=== PATIENT | male | born 1995 | race Caucasian/White ===

== ENCOUNTER 2018-03-15 13:42 | Emergency (ER) | payer BC, MEDICAID, SELFPAY ==
[2018-03-15 13:49] VITALS: BP 134/55; PULSE 60; RESP 14; TEMP 36.5; O2SAT 97
--- NOTE | 2018-03-15 15:15 | W.ED.GENAD ---
Discharge Plan Discharge Details Chief Complaint: Nk/Back Pain Primary Care Provider: Trudy Bliss ED Provider: Jn Chavez Home Meds and New Rx's Prescriptions: No Action ibuprofen 200 MG tablet 1 tab PO PRN PRNRF: 0 ibuprofen 800 MG tablet 800 mg PO TID PRN PRNQty: 20 RF: 0 Medical Decision Making 22yom with recurrent R sciatica. He will benefit from steroids, mild muscle relaxant, he is neuromotor intact. Discussed home management and followup, will offer PT and 2 days off work. HPI General Mode of arrival: ambulatory. Date/Time Provider Initiated Documentation: 03/15/18 14:30. Limitations to Documentation: no limitations. Information obtained by: patient and family. History of Present Illness described as moderate, Quality is described as aching, and is localized to the back and right. Patient extremity. Patient started experiencing this day(s) and it has been constant. No relieving factors improve symptom(s), Movement worsens symptoms . Patient notes no other symptoms.. HPI Narrative: REcurrent R low back pain radiating to buttock. No numbness or weakness. No incontinence. Similar to previous. Related Data Home Medications Medication Instructions Recorded Confirmed ibuprofen 1 tab PO PRN PRN 12/17/14 03/15/18 ibuprofen 800 mg PO TID PRN PRN #20 tablet 12/17/14 03/15/18 Previous Rx's Medication Instructions Recorded ibuprofen 800 mg PO TID PRN PRN #20 tablet 12/17/14 Allergies Allergy/AdvReac Type Severity Reaction Status Date / Time No Known Allergies Allergy Unverified 03/15/18 13:53 General Stated Complaint: Nk/Back Pain CHAS: 4 Review of Systems Review of Systems 8 systems reviewed and otherwise neg PFSH Social History Smoking/Tobacco Use Status: Current every day Exam Const General: cooperative and healthy appearing Nutritional Appearance: average body habitus HENMT Head: normal to inspection and normocephalic Chest Chest: normal inspection of the chest and normal palpation of entire chest wall Resp Effort & Inspection: normal respiratory effort and able to speak in complete sentences Cardio Rate: regular rate Rhythm: regular rhythm Back/Spine/Pelvis Back: no CVA tenderness, No mass, No erythema and No warmth Cervical Spine: other (R sciatic notch pain on palpation) Neuro General: alert, awake and oriented x3 Cranial Nerves: other (motor 5/5/ bilateral lower extremity. Sensation intact throughout. Reflex 1+ bilateral patella.) Course Vital Signs Temperature 36.5 C 03/15/18 13:49 Pulse 60 03/15/18 13:49 Respiratory Rate 14 03/15/18 13:49 Blood Pressure 134/55 L 03/15/18 13:49 Pulse Oximetry 97 03/15/18 13:49 Temperature 36.5 C 03/15/18 13:49 Temperature Source Temporal Artery Scan 03/15/18 13:49 Pulse 60 03/15/18 13:49 Respiratory Rate 14 03/15/18 13:49 Respiratory Effort Non-Labored 03/15/18 13:50 Blood Pressure 134/55 L 03/15/18 13:49 Blood Pressure Position Sitting 03/15/18 13:49 Pulse Oximetry 97 03/15/18 13:49 Oxygen Delivery Method Room Air 03/15/18 13:49 Oxygen Flow Rate 0 03/15/18 13:49 Pain Level 7 03/15/18 13:52
--- NOTE | 2018-03-15 15:21 | ED.GENADUL_ITS ---
Discharge Plan Discharge Details Chief Complaint: Nk/Back Pain Primary Care Provider: Trudy Bliss ED Provider: Jn Chavez Home Meds and New Rx's Prescriptions: No Action ibuprofen 200 MG tablet 1 tab PO PRN PRNRF: 0 ibuprofen 800 MG tablet 800 mg PO TID PRN PRNQty: 20 RF: 0 Medical Decision Making 22yom with recurrent R sciatica. He will benefit from steroids, mild muscle relaxant, he is neuromotor intact. Discussed home management and followup, will offer PT and 2 days off work. HPI General Mode of arrival: ambulatory . Date/Time Provider Initiated Documentation: 03/15/18 14:30 . Limitations to Documentation: no limitations . Information obtained by: patient and family . History of Present Illness described as moderate, Quality is described as aching, and is localized to the back and right. Patient extremity. Patient started experiencing this day (s) and it has been constant. No relieving factors improve symptom(s), Movement worsens symptoms . Patient notes no other symptoms.. HPI Narrative: REcurrent R low back pain radiating to buttock. No numbness or weakness. No incontinence. Similar to previous. Related Data Home Medications Medication Instructions Recorded Confirmed ibuprofen 1 tab PO PRN PRN 12/17/14 03/15/18 ibuprofen 800 mg PO TID PRN PRN #20 tablet 12/17/14 03/15/18 Previous Rx's Medication Instructions Recorded ibuprofen 800 mg PO TID PRN PRN #20 tablet 12/17/14 Allergies Allergy/AdvReac Type Severity Reaction Status Date / Time No Known Allergies Allergy Unverified 03/15/18 13:53 General Stated Complaint: Nk/Back Pain CHAS: 4 Review of Systems Review of Systems 8 systems reviewed and otherwise neg PFSH Social History Smoking/Tobacco Use Status: Current every day Exam Const General: cooperative and healthy appearing Nutritional Appearance: average body habitus HENMT Head: normal to inspection and normocephalic Chest Chest: normal inspection of the chest and normal palpation of entire chest wall Resp Effort & Inspection: normal respiratory effort and able to speak in complete sentences Cardio Rate: regular rate Rhythm: regular rhythm Back/Spine/Pelvis Back: no CVA tenderness, No mass, No erythema and No warmth Cervical Spine: other (R sciatic notch pain on palpation) Neuro General: alert, awake and oriented x3 Cranial Nerves: other (motor 5/5/ bilateral lower extremity. Sensation intact throughout. Reflex 1+ bilateral patella.) Course Vital Signs Temperature 36.5 C 03/15/18 13:49 Pulse 60 03/15/18 13:49 Respiratory Rate 14 03/15/18 13:49 Blood Pressure 134/55 L 03/15/18 13:49 Pulse Oximetry 97 03/15/18 13:49 Temperature 36.5 C 03/15/18 13:49 Temperature Source Temporal Artery Scan 03/15/18 13:49 Pulse 60 03/15/18 13:49 Respiratory Rate 14 03/15/18 13:49 Respiratory Effort Non-Labored 03/15/18 13:50 Blood Pressure 134/55 L 03/15/18 13:49 Blood Pressure Position Sitting 03/15/18 13:49 Pulse Oximetry 97 03/15/18 13:49 Oxygen Delivery Method Room Air 03/15/18 13:49 Oxygen Flow Rate 0 03/15/18 13:49 Pain Level 7 03/15/18 13:52
== END 2018-03-15 15:33 | disposition home or self-care (01) ==
PROVIDERS: Emergency Provider Emergency Medicine; PCP Family Medicine
DX: M54.5 Low back pain (principal); G89.29 Other chronic pain
CPT/HCPCS: 99283

== ENCOUNTER 2018-03-19 14:03 | Emergency (ER) | payer BC, MEDICAID, SELFPAY ==
[2018-03-19 14:08] VITALS: BP 135/82; PULSE 89; RESP 18; TEMP 36.8; O2SAT 98
--- NOTE | 2018-03-19 14:42 | W.ED.GENAD ---
Discharge Plan Disposition Patient Disposition: HOME Condition: Stable Discharge Details Chief Complaint: Nk/Back Pain Clinical Impression: Acute exacerbation of chronic low back pain, Sciatica Primary Care Provider: Trudy Bliss ED Provider: Anette Wolfe Home Meds and New Rx's Prescriptions: New diazepam [Valium] 5 mg tablet 5 mg PO TID PRN (Reason: muscle spasm) Qty: 9 RF: 0 Continue prednisone 20 mg tablet 40 mg PO DAILY 5 Days Qty: 10 RF: 0 Discontinued cyclobenzaprine 10 mg tablet 10 mg PO TID PRN (Reason: back pain and spasm) Qty: 10 RF: 0 Discharge Instructions Instructions: Sciatica (ED) Additional Instructions: Alternate Tylenol and Motrin as needed and directed for pain. Alternate ice and heat to the affected area several times daily for 20 minutes at a time. Follow-up with your scheduled appointment with your primary care doctor on Thursday. Return to the emergency department with any worsening or new concerning symptoms. Stand Alone Forms: Work Release Discharge Data Discharge Physician: Anette Wolfe Medical Decision Making 22yo M w/ h/o chronic back pain for years who presents w/ persistent R lower back pain with radiation down R leg x 1 week, worse over the past 2 days. Also c/o R leg weakness but states he has had this for years and no acute worsening. No other cauda equina symptoms. No relief with flexeril or steroids given here on ED visit earlier this week. Afebrile. Pt able to ambulate normally around the room. No focal deficits. Neurovascularly intact. As pt does not want to take the flexeril due to fatigue, will give script for valium. Pt drove himself to the ED. Informed patient that Valium can make him sleepy as well but possibly not as much as flexeril. Instructed on the importance of scheduled ibuprofen, ice, heat. We will also sent home with 2 tabs of Tylenol with codeine to help with pain if not relieved with Valium or ibuprofen. Pt has a follow up appointment with his primary care doctor in 3 days. He states he was previously told that he may have an MRI of his lumbar spine due to his chronic back pain and 6th lumbar vertebrae. He was instructed to return here immediately with any acute worsening symptoms or other concerns. Pt requests a work note upon discharge and states he called out of work today and needs a work note for today. HPI General Mode of arrival: ambulatory. Date/Time Provider Initiated Documentation: 03/19/18 14:16. Limitations to Documentation: no limitations. Information obtained by: patient. HPI Narrative: Patient is a 22-year-old male who presents to the ED with a complaint of persistent lower back pain with radiation down the right leg for the past week. Patient was seen here 4 days ago for same and diagnosed with sciatica and given Flexeril and prednisone without relief. States he does not like taking the Flexeril because it makes him sleepy and unable to function at home with his 2 young kids and at work. States he finished the steroids today and they did not help. Denies any relief with ibuprofen but states he has not been taking it regularly. Patient states his pain is in his right lower back with radiation down the back of his leg to his foot. States the pain is worse with movement, sitting, standing and better when laying down. He denies any new injury but states the pain is worse over the past 2 days. States he does have a history of chronic back pain for years and was told this could possibly be due to a 6th vertebrae in my lower back putting pressure on a nerve. Pt states he does occasionally have right leg weakness due to pain. Denies fever, abdominal pain, urinary or fecal incontinence, saddle anesthesia, leg numbness. Past medical history: Chronic back pain Surgical history: None Social history: Smokes tobacoo, Rare ETOH, Denies drugs Meds: Flexeril, Prednisone Allergies: NKDA PCP: [facility] Related Data Home Medications Medication Instructions Recorded Confirmed prednisone 40 mg PO DAILY 5 Days #10 tab 03/15/18 03/19/18 diazepam [Valium] 5 mg PO TID PRN #9 tab 03/19/18 Previous Rx's Medication Instructions Recorded prednisone 40 mg PO DAILY 5 Days #10 tab 03/15/18 diazepam [Valium] 5 mg PO TID PRN #9 tab 03/19/18 Allergies Allergy/AdvReac Type Severity Reaction Status Date / Time No Known Allergies Allergy Unverified 03/19/18 14:11 General Stated Complaint: Nk/Back Pain CHAS: 4 Review of Systems Review of Systems All systems reviewed & are unremarkable except as noted in HPI and below PFSH Social History Smoking/Tobacco Use Status: Current every day Exam Const General: cooperative and healthy appearing Orientation: alert and awake HENMT Head: normal to inspection Ears: hearing grossly normal bilaterally and external ears normal General nose exam: external nose normal Face and sinus: normal facial exam Mouth: oral mucosae normal Eyes General: appearance normal, both eyes and all related structures Eyelids: eyelids normal Neck Neck: normal visual inspection Lymphatic: no lymphadenopathy noted Chest Chest: normal inspection of the chest Resp Effort & Inspection: normal respiratory effort and able to speak in complete sentences Auscultation: clear to auscultation bilaterally Cardio Rate: regular rate Rhythm: regular rhythm GI Inspection: normal to inspection Palpation: soft, not firm, no guarding, no hepatosplenomegaly, no masses and nontender Auscultation: normal bowel sounds Back/Spine/Pelvis Back: no CVA tenderness Thoracic/Lumbar Spine: paraspinal tenderness (Right lumbar region) and No lumbar spinal tenderness Pelvis: buttock tenderness on the right Skin General skin exam: no rashes or lesions noted Neuro General: alert and awake Cognition: normal cognition Speech: speech normal Gait: normal gait Motor: muscle tone normal throughout and strength 5/5 throughout Sensory Exam: no sensory deficits noted DTR's: Rt Patellar: 1+, Lt Patellar: 1+, Rt Ankle: 1+ and Lt Ankle: 1+ Plantar Reflexes: Equivocal: bilateral Extrem General: normal to inspection, full ROM, normal capillary refill, normal gait, no calf tenderness bilaterally, no cyanosis, no edema and other (B/L DP/PT pulses intact ) Psych Appearance: grossly normal Mental Status: mental status grossly normal Speech and Movement: speech and movement normal Affect: normal affect Thought Process: normal Course Vital Signs Temperature 98.2 F 03/19/18 14:08 Pulse 89 03/19/18 14:08 Respiratory Rate 18 03/19/18 14:08 Blood Pressure 135/82 03/19/18 14:08 Pulse Oximetry 98 03/19/18 14:08 Temperature 98.2 F 03/19/18 14:08 Temperature Source Skin 03/19/18 14:08 Pulse 89 03/19/18 14:08 Respiratory Rate 18 03/19/18 14:08 Respiratory Effort 03/19/18 14:13 Blood Pressure 135/82 03/19/18 14:08 Pulse Oximetry 98 03/19/18 14:08 Oxygen Delivery Method Room Air 03/19/18 14:08 Oxygen Flow Rate 0 03/19/18 14:08 Pain Level 10 03/19/18 14:08
== END 2018-03-19 15:20 | disposition home or self-care (01) ==
PROVIDERS: Emergency Provider Physician Assistant; PCP Family Medicine
DX: M54.41 Lumbago with sciatica, right side (principal)
CPT/HCPCS: 99283

== ENCOUNTER 2018-05-14 12:36 | Emergency (ER) | payer SELFPAY ==
[2018-05-14 12:38] VITALS: BP 141/76; PULSE 88; RESP 16; TEMP 36.6; O2SAT 96
--- NOTE | 2018-05-14 12:41 | W.ED.GENAD ---
Discharge Plan Disposition Patient Disposition: HOME Condition: Fair Discharge Details Chief Complaint: Nausea/Vomit/Diar Clinical Impression: Gastroenteritis Primary Care Provider: Trudy Bliss ED Provider: Norah Montano Home Meds and New Rx's Prescriptions: New ondansetron 4 mg tablet,disintegrating 4 mg PO QID PRN (Reason: nausea and vomiting) Qty: 10 RF: 0 Discharge Instructions Instructions: Gastroenteritis (ED) Additional Instructions: Encourage hydration. Zofran as prescribed to help with nausea and vomiting. You may try increasing fiber or bulk forming fiber supplements to help with your chronic loose stools. If you develop fever/chills, increased pain, no blood in your stool your vomit, are unable to stay hydrated or develop other new/worsening symptoms please seek care urgently once again. Otherwise, please follow-up with primary care next week Stand Alone Forms: Work Release Referrals: Trudy Bliss [Primary Care Provider] - Medical Decision Making Patient 22-year-old male, otherwise healthy, presents today with chief complaint of nausea and vomiting times 4 days. Also endorsing diarrhea. States that he is having soft bowel movement 1-2 times daily for the past several weeks. States that he has had some abdominal discomfort associated with bowel movements but is not having any discomfort at this time. No recent fevers. No recent travel. No recent antibiotics. No previous abdominal surgeries. Exam is benign, no peritoneal findings. Abdomen is soft and nontender. Patient appears nontoxic, vital signs are stable. Will obtain laboratory evaluation and hydrate the patient. Will give Zofran to help with current nausea. He does report that there is multiple people sick at work. Laboratory evaluation without significant abnormality. Patient received 4 mg IV Zofran and feels improved. He received 1 L of hydration. The patient is not having frequent watery stool, I do not feel this is infectious. He is unable to give us a sample today. I have asked that he follow-up with primary care in 1 week if symptoms have not improved. I did advise a bulk forming agents to help with his now chronic diarrhea. Will be prescribed Zofran to help with the nausea in the acute setting. We discussed new/worsening symptoms and when to seek care urgently once again. All his questions and concerns were addressed and he is agreement with this plan HPI General Mode of arrival: ambulatory. Date/Time Provider Initiated Documentation: 05/14/18 12:38. Limitations to Documentation: no limitations. Information obtained by: patient. History of Present Illness 22 year old M presents to the emergency department with the chief complaint of nausea, vomiting, diarrhea, described as moderate, and is localized to the abdomen (endorses discomfort in the abdomen particular with bowel movement, no pain at this time). Patient reports no radiation. Patient started experiencing this day(s) (4) and it has been constant. No relieving factors improve symptom(s), No exacerbating factors reported . Patient notes loss of appetite and nausea/vomiting; denies chest pain, cough, diaphoresis, fever/chills, headaches, rash, shortness of breath and syncope. Patient did receive the following treatments prior to arrival, none Related Data Home Medications Medication Instructions Recorded Confirmed ondansetron 4 mg PO QID PRN #10 tab 05/14/18 Previous Rx's Medication Instructions Recorded ondansetron 4 mg PO QID PRN #10 tab 05/14/18 Allergies Allergy/AdvReac Type Severity Reaction Status Date / Time No Known Allergies Allergy Unverified 05/14/18 12:43 General Stated Complaint: Nausea/Vomit/Diar CHAS: 3 Review of Systems Constitutional Reports as per HPI, Denies chills, Denies fatigue, Denies fever(s) and Denies headache(s) ENT Denies headache(s) Cardiovascular Reports as per HPI, Denies chest pain and Denies dyspnea Respiratory Denies dyspnea Gastrointestinal Reports as per HPI, Reports abdominal pain, Reports change in stool character (states he has had soft BM for the past several weeks, states he has 1-2BM per day), Reports nausea and Reports vomiting Genitourinary Denies system reviewed and no additional complaints, except as docu (patient denies any change in urinary habits), Denies dysuria, Denies flank pain, Denies scrotal swelling, Denies testicular pain and Denies urinary frequency Musculoskeletal Reports as per HPI and Reports back pain (endorses chronic back pain, no acute change, no increase in pain with recent illness) Integumentary/Breasts Reports as per HPI and Denies rash Neurologic Denies headache(s) Endocrine Denies fatigue PFSH Social History Smoking/Tobacco Use Status: Current-Occasional Exam Const General: cooperative, healthy appearing, comfortable, no acute distress and well developed Nutritional Appearance: average body habitus and well nourished Orientation: alert and awake HENCA Head: normal to inspection Mouth: moist mucous membranes Resp Effort & Inspection: normal respiratory effort, able to speak in complete sentences and no respiratory distress Auscultation: clear to auscultation bilaterally, no rales, no rhonchi and no wheezes Cardio Rate: regular rate Rhythm: regular rhythm Heart Sounds: S1 normal and S2 normal GI Inspection: normal to inspection, no abdominal wall ecchymosis, no edema, non-distended and no visible herniation Palpation: soft, no hepatosplenomegaly, no aortic enlargement, not firm, no guarding, no hernias, not rigid and nontender Percussion: normal to percussion Auscultation: normal bowel sounds Back/Spine/Pelvis Back: no CVA tenderness Skin General skin exam: no rashes or lesions noted Trauma: no lacerations or abrasions Neuro General: alert and awake Cognition: normal cognition Speech: speech normal Gait: normal gait Psych Appearance: grossly normal and well kempt Mental Status: mental status grossly normal Speech and Movement: speech and movement normal Course Vital Signs Temperature 36.6 C 05/14/18 12:38 Pulse 88 05/14/18 12:38 Respiratory Rate 16 05/14/18 12:38 Blood Pressure 141/76 H 05/14/18 12:38 Pulse Oximetry 96 05/14/18 12:38 Temperature 36.6 C 05/14/18 12:38 Temperature Source Temporal Artery Scan 05/14/18 12:38 Pulse 88 05/14/18 12:38 Respiratory Rate 16 05/14/18 12:38 Blood Pressure 141/76 H 05/14/18 12:38 Blood Pressure Position Sitting 05/14/18 12:38 Pulse Oximetry 96 05/14/18 12:38 Oxygen Delivery Method Room Air 05/14/18 12:38 Oxygen Flow Rate 0 05/14/18 12:38
--- NOTE | 2018-05-14 12:56 | ED.GENADUL_ITS ---
Discharge Plan Disposition Patient Disposition: HOME Condition: Fair Discharge Details Chief Complaint: Nausea/Vomit/Diar Clinical Impression: Gastroenteritis Primary Care Provider: Trudy Bliss ED Provider: Norah Montano Home Meds and New Rx's Prescriptions: New ondansetron 4 mg tablet,disintegrating 4 mg PO QID PRN (Reason: nausea and vomiting) Qty: 10 RF: 0 Discharge Instructions Instructions: Gastroenteritis (ED) Additional Instructions: Encourage hydration. Zofran as prescribed to help with nausea and vomiting. You may try increasing fiber or bulk forming fiber supplements to help with your chronic loose stools. If you develop fever/chills, increased pain, no blood in your stool your vomit, are unable to stay hydrated or develop other new /worsening symptoms please seek care urgently once again. Otherwise, please follow-up with primary care next week Stand Alone Forms: Work Release Referrals: Trudy Bliss [Primary Care Provider] - Medical Decision Making Patient 22-year-old male, otherwise healthy, presents today with chief complaint of nausea and vomiting times 4 days. Also endorsing diarrhea. States that he is having soft bowel movement 1-2 times daily for the past several weeks. States that he has had some abdominal discomfort associated with bowel movements but is not having any discomfort at this time. No recent fevers. No recent travel. No recent antibiotics. No previous abdominal surgeries. Exam is benign, no peritoneal findings. Abdomen is soft and nontender. Patient appears nontoxic, vital signs are stable. Will obtain laboratory evaluation and hydrate the patient. Will give Zofran to help with current nausea. He does report that there is multiple people sick at work. Laboratory evaluation without significant abnormality. Patient received 4 mg IV Zofran and feels improved. He received 1 L of hydration. The patient is not having frequent watery stool, I do not feel this is infectious. He is unable to give us a sample today. I have asked that he follow-up with primary care in 1 week if symptoms have not improved. I did advise a bulk forming agents to help with his now chronic diarrhea. Will be prescribed Zofran to help with the nausea in the acute setting. We discussed new/worsening symptoms and when to seek care urgently once again. All his questions and concerns were addressed and he is agreement with this plan HPI General Mode of arrival: ambulatory . Date/Time Provider Initiated Documentation: 05/14/18 12:38 . Limitations to Documentation: no limitations . Information obtained by: patient . History of Present Illness 22 year old M presents to the emergency department with the chief complaint of nausea, vomiting, diarrhea, described as moderate, and is localized to the abdomen (endorses discomfort in the abdomen particular with bowel movement, no pain at this time). Patient reports no radiation. Patient started experiencing this day(s) (4) and it has been constant. No relieving factors improve symptom(s), No exacerbating factors reported . Patient notes loss of appetite and nausea/vomiting; denies chest pain, cough, diaphoresis, fever/ chills, headaches, rash, shortness of breath and syncope. Patient did receive the following treatments prior to arrival, none Related Data Home Medications Medication Instructions Recorded Confirmed ondansetron 4 mg PO QID PRN #10 tab 05/14/18 Previous Rx's Medication Instructions Recorded ondansetron 4 mg PO QID PRN #10 tab 05/14/18 Allergies Allergy/AdvReac Type Severity Reaction Status Date / Time No Known Allergies Allergy Unverified 05/14/18 12:43 General Stated Complaint: Nausea/Vomit/Diar CHAS: 3 Review of Systems Constitutional Reports as per HPI, Denies chills, Denies fatigue, Denies fever(s) and Denies headache(s) ENT Denies headache(s) Cardiovascular Reports as per HPI, Denies chest pain and Denies dyspnea Respiratory Denies dyspnea Gastrointestinal Reports as per HPI, Reports abdominal pain, Reports change in stool character ( states he has had soft BM for the past several weeks, states he has 1-2BM per day), Reports nausea and Reports vomiting Genitourinary Denies system reviewed and no additional complaints, except as docu (patient denies any change in urinary habits), Denies dysuria, Denies flank pain, Denies scrotal swelling, Denies testicular pain and Denies urinary frequency Musculoskeletal Reports as per HPI and Reports back pain (endorses chronic back pain, no acute change, no increase in pain with recent illness) Integumentary/Breasts Reports as per HPI and Denies rash Neurologic Denies headache(s) Endocrine Denies fatigue PFSH Social History Smoking/Tobacco Use Status: Current-Occasional Exam Const General: cooperative, healthy appearing, comfortable, no acute distress and well developed Nutritional Appearance: average body habitus and well nourished Orientation: alert and awake HENMN Head: normal to inspection Mouth: moist mucous membranes Resp Effort & Inspection: normal respiratory effort, able to speak in complete sentences and no respiratory distress Auscultation: clear to auscultation bilaterally, no rales, no rhonchi and no wheezes Cardio Rate: regular rate Rhythm: regular rhythm Heart Sounds: S1 normal and S2 normal GI Inspection: normal to inspection, no abdominal wall ecchymosis, no edema, non- distended and no visible herniation Palpation: soft, no hepatosplenomegaly, no aortic enlargement, not firm, no guarding, no hernias, not rigid and nontender Percussion: normal to percussion Auscultation: normal bowel sounds Back/Spine/Pelvis Back: no CVA tenderness Skin General skin exam: no rashes or lesions noted Trauma: no lacerations or abrasions Neuro General: alert and awake Cognition: normal cognition Speech: speech normal Gait: normal gait Psych Appearance: grossly normal and well kempt Mental Status: mental status grossly normal Speech and Movement: speech and movement normal Course Vital Signs Temperature 36.6 C 05/14/18 12:38 Pulse 88 05/14/18 12:38 Respiratory Rate 16 05/14/18 12:38 Blood Pressure 141/76 H 05/14/18 12:38 Pulse Oximetry 96 05/14/18 12:38 Temperature 36.6 C 05/14/18 12:38 Temperature Source Temporal Artery Scan 05/14/18 12:38 Pulse 88 05/14/18 12:38 Respiratory Rate 16 05/14/18 12:38 Blood Pressure 141/76 H 05/14/18 12:38 Blood Pressure Position Sitting 05/14/18 12:38 Pulse Oximetry 96 05/14/18 12:38 Oxygen Delivery Method Room Air 05/14/18 12:38 Oxygen Flow Rate 0 05/14/18 12:38
[2018-05-14] MEDS: Normal Saline 1,000 ML 1000 ML IV (12:58)
[2018-05-14] MEDS: Ondansetron 4 MG/2 ML VIAL IVP (13:00)
[2018-05-14 13:02] LABS: Abs Immature Grans 0.01 k/cumm (0.0-0.09); Absolute Basophil Count 0.02 k/cumm (0.0-0.2); Absolute Eosinophil Count 0.07 k/cumm (0.0-0.7); Absolute Lymphocyte Count 2.76 k/cumm (1.2-3.4); Absolute Neutrophil Count 5.17 k/cumm (1.2-6.7); Basophils % 0.2; Eosinophils % 0.8; HCT 44.3 % (40.0-50.0); HGB 15.5 g/dL (13.5-17.5); Immature Grans % 0.1; Lymphocytes % 31.6; Mean Corpuscular Hemoglobin 29.4 pg (27.0-33.0); Mean Corpuscular Volume 84.1 fL (80-95); Mean Platelet Volume 10.2 fL (8.0-11.0); Neutrophils % 59.3; Platelet Count 280 x1000/uL (130-400); RBC 5.27 m/cumm (4.50-6.00); RBC Distribution Width 13.2 % (11.8-14.1); White Blood Cell Count 8.73 k/cumm (4.4-10.8)
[2018-05-14 13:19] LABS: ALT 49 U/L (12-78); AST 30 U/L (15-37); Albumin 4.7 g/dL (3.4-5.0); Alkaline Phosphatase 72 U/L (46-116); Anion Gap 13.6 mmol/L (3-11); BUN 12 mg/dL (7-18); Bilirubin, Total 0.8 mg/dL (0.2-1.0); CO2 26.4 mmol/L (21.0-32.0); CREATININE 1.05 mg/dL (0.70-1.30); Calcium 9.3 mg/dL (8.5-10.1); Chloride 100 mmol/L (98-107); Glucose 94 mg/dL (70-100); Lipase 117 U/L (73-393); Magnesium 1.9 mg/dL (1.8-2.4); Potassium 3.6 mmol/L (3.5-5.1); Sodium 140 mmol/L (136-145); Total Protein 8.5 g/dL (6.4-8.2)
[2018-05-14 13:27] LABS: Troponin I < 0.02 ng/mL (0.00-0.06)
[2018-05-14 13:38] VITALS: BP 107/55; PULSE 66; RESP 16; TEMP 36.6; O2SAT 97
== END 2018-05-14 13:42 | disposition home or self-care (01) ==
PROVIDERS: Emergency Provider Physician Assistant; PCP Family Medicine
DX: K52.9 Noninfective gastroenteritis and colitis, unspecified (principal)
CPT/HCPCS: 36415; 80053; 83690; 96361; 96374; 99284; 83735; 84484; 85025; J2405

== ENCOUNTER 2018-05-24 05:24 | Emergency (ER) | payer SELFPAY ==
[2018-05-24 05:29] VITALS: BP 139/79; PULSE 89; RESP 16; TEMP 36.6; O2SAT 98
--- NOTE | 2018-05-24 05:45 | DI.RAD_ITS ---
SYMPTOM/DIAGNOSIS: TRAUMA, ATTN MID SHAFT ULNA RIGHT FOREARM: Two views. No acute fracture or dislocation is identified. IMPRESSION: No acute abnormality.
--- NOTE | 2018-05-24 05:45 | DI.RAD_ITS ---
SYMPTOM/DIAGNOSIS: TRAUMA, ATTN 3RD/4TH MCP JOINT RIGHT HAND: Two views. No bone or joint abnormality is identified. The soft tissues are unremarkable. IMPRESSION: No acute abnormality.
--- NOTE | 2018-05-24 05:48 | W.ED.GENAD ---
Discharge Plan Disposition Patient Disposition: HOME Condition: Good Discharge Details Chief Complaint: HeadInjury Clinical Impression: Contusion of hand, Contusion of forearm Primary Care Provider: Trudy Bliss ED Provider: Bryan eNal Home Meds and New Rx's Prescriptions: No Action ondansetron 4 mg tablet,disintegrating 4 mg PO QID PRN (Reason: nausea and vomiting) Qty: 10 RF: 0 Discharge Instructions Instructions: Contusion in Adults (ED), RICE Therapy (ED) Additional Instructions: Please take ice, Tylenol, and Motrin as needed for control of the pain and swelling. If you notice any worsening of your symptoms, or any new symptoms such as vomiting, diarrhea, fever, chills, shortness of breath, chest pain, numbness, weakness, or fainting , please return immediately to the emergency department for reevaluation. Please follow up with your primary care provider as soon as possible for reassessment and reevaluation. As always, it was a pleasure participating in your medical care today. Stand Alone Forms: Work Release Referrals: Trudy Bliss [Primary Care Provider] - Medical Decision Making This is a pleasant 22-year-old male who presents for evaluation after a fall. The patient was walking on ice when he slipped and hit the back of his head and his right hand and forearm. He smacked the ice fairly hard with his right upper extremity, however it was complicated by him holding his coffee as well. He has mild to moderate pain over the third and fourth MCP joint on the right dominant hand. As well as mild pain over the midshaft ulna. We will get an x-ray to evaluate for any acute process. He has no pain over the wrist, no pain with flexion or extension of the wrist. Ice has been placed, we will give Tylenol and Motrin. X-ray results have returned, there is no evidence of acute process or fracture noted on x-ray per virtual radiology. Patient will be discharged home with close follow-up with his PCP. We discussed red flags which to return the continued importance of ice, Tylenol, and Motrin. I have extensively reviewed the treatment plan and discharge instructions with the patient. I have addressed all patient concerns at this time. The patient was made aware of what symptoms to monitor for that would warrant a return to the emergency department. Discussed the plan with the patient, they demonstrate verbal understanding and agreement with our assessment and plan at this time. XR Right Forearm, 2 Views FINDINGS: Bones/joints: Typical for age. No evidence of acute fracture. Soft tissues: Unremarkable. IMPRESSION: No acute findings. XR Right Hand, 1 or 2 Views FINDINGS: Bones/joints: Typical for age. No evidence of acute fracture. Soft tissues: Unremarkable. IMPRESSION: No acute findings. HPI General Date/Time Provider Initiated Documentation: 05/24/18 05:44. HPI Narrative: This is a 22-year-old male with no significant past medical history who presents for evaluation of a fall. The patient states that he was walking into work, but unfortunately the entrance was issue device and he slipped and hit the back of his head and his right hand. He is right-hand dominant. He had no loss of consciousness and recalls the entire event. He does have a mild headache, however he states that the majority of his pain is in his right knuckles and right forearm. Pain is made worse with palpation. He came here immediately after the event, and is not taking any Tylenol or Motrin or ice. He denies any improvement of his symptoms with any focal action. He denies any radiation of his pain aside for over the third and fourth knuckle in the midshaft of the ulna. He denies any pain at the elbow or shoulder. He denies any associated numbness or tingling. He has no other complaints at this time. No previous surgeries. No IV or illicit drug use. Related Data Home Medications Medication Instructions Recorded Confirmed ondansetron 4 mg PO QID PRN #10 tab 05/14/18 05/24/18 Previous Rx's Medication Instructions Recorded ondansetron 4 mg PO QID PRN #10 tab 05/14/18 Allergies Allergy/AdvReac Type Severity Reaction Status Date / Time No Known Allergies Allergy Unverified 05/24/18 05:38 General Stated Complaint: HeadInjury CHAS: 3 Review of Systems Review of Systems All systems reviewed & are unremarkable except as noted in HPI and below [facility] Social History Smoking/Tobacco Use Status: Current-Occasional Exam Narrative Exam Narrative: 1.Const: Well-nourished, Well-developed, appearing stated age 2.Eyes: PERRL, no conjunctival injection, and symmetrical lids. 3.ENT: Atraumatic external nose and ears. Moist MM. Neck: Symmetric, trachea midline, No thyromegaly. There is no evidence of raccoon eyes, mccabe sign, CSF rhinorrhea, mastoid tenderness, cranial crepitus, hemotympanum, exophthalmos, or hyphema. 4.CVS: +S1/S2, No murmurs or gallops. Peripheral pulses 2+ and equal in all extremities. Brisk capillary refill in all extremities. 5.RESP: Unlabored respiratory effort. Clear to auscultation bilaterally. No wheezes rales or rhonchi 6.GI: Soft, Nontender/Nondistended, No hepatosplenomegaly. No guarding or rebound. 7.MSK: Normocephalic, Extremities w/o deformity. No cyanosis or clubbing, Normal movement of all extremities. No midline cervical spine tenderness. No evidence of hematoma in the scalp. No evidence of trauma on the scalp or head. Normal range of motion of the neck and C-spine. No evidence of trauma. Patient's extremities are all normal gross movements. Right upper extremity demonstrates mild tenderness on palpation of the midshaft ulna. No evidence of deformity or bruising or trauma. Patient also demonstrates mild tenderness over the third and fourth metacarpal phalangeal joint. Normal movement. Symmetrically palpable radial and ulnar pulses. Capillary refill ?2 seconds to all digits. Intact sensation to light touch of the radial, median and ulnar nerves demonstrated by testing in the dorsal web space of the thumb, the distal palmar aspect of the index finger, and the lateral surface of the fifth finger. 2 point discrimination intact to 5mm (up to 6mm can be normal in digits 3-5) of discrimination in the affected digit. Intact motor function of the radial, median and ulnar nerves demonstrated by strength of extension of the isolated distal joint of the index finger, hand whipped topping mixer, and spreading of the 2nd through 5th digits. Intact recurrent median nerve as demonstrated by ability to move thumb fully through opposition, abduction and flexion. No snuffbox tenderness. 8.Skin: Warm, Dry. No rashes or lesions. 9.Neuro: supervisor type photography II-XII grossly intact. Sensation grossly intact, no focal neurologic deficits. 10.Psych: (AAO) x3. Appropriate mood and affect Course Vital Signs Temperature 36.6 C 05/24/18 05:29 Pulse 89 05/24/18 05:29 Respiratory Rate 16 05/24/18 05:29 Blood Pressure 139/79 05/24/18 05:29 Pulse Oximetry 98 05/24/18 05:29 Temperature 36.6 C 05/24/18 05:29 Temperature Source Temporal Artery Scan 05/24/18 05:29 Pulse 89 05/24/18 05:29 Respiratory Rate 16 05/24/18 05:29 Respiratory Effort Non-Labored 05/24/18 05:32 Blood Pressure 139/79 05/24/18 05:29 Blood Pressure Position Sitting 05/24/18 05:29 Pulse Oximetry 98 05/24/18 05:29 Oxygen Delivery Method Room Air 05/24/18 05:29 Oxygen Flow Rate 0 05/24/18 05:29 Pain Level 7 05/24/18 05:29
--- NOTE | 2018-05-24 05:58 | ED.GENADUL_ITS ---
Discharge Plan Disposition Patient Disposition: HOME Condition: Good Discharge Details Chief Complaint: HeadInjury Clinical Impression: Contusion of hand, Contusion of forearm Primary Care Provider: Trudy Bliss ED Provider: Bryan Neal Home Meds and New Rx's Prescriptions: No Action ondansetron 4 mg tablet,disintegrating 4 mg PO QID PRN (Reason: nausea and vomiting) Qty: 10 RF: 0 Discharge Instructions Instructions: Contusion in Adults (ED), RICE Therapy (ED) Additional Instructions: Please take ice, Tylenol, and Motrin as needed for control of the pain and swell ing. If you notice any worsening of your symptoms, or any new symptoms such as vomiting, diarrhea, fever, chills, shortness of breath, chest pain, numbness, weakness, or fainting , please return immediately to the emergency department for reevaluation. Please follow up with your primary care provider as soon as possible for reassessment and reevaluation. As always, it was a pleasure participating in your medical care today. Stand Alone Forms: Work Release Referrals: Trudy Bliss [Primary Care Provider] - Medical Decision Making This is a pleasant 22-year-old male who presents for evaluation after a fall. The patient was walking on ice when he slipped and hit the back of his head and his right hand and forearm. He smacked the ice fairly hard with his right upper extremity, however it was complicated by him holding his coffee as well. He has mild to moderate pain over the third and fourth MCP joint on the right dominant hand. As well as mild pain over the midshaft ulna. We will get an x-ray to evaluate for any acute process. He has no pain over the wrist, no pain with flexion or extension of the wrist. Ice has been placed, we will give Tylenol and Motrin. X-ray results have returned, there is no evidence of acute process or fracture noted on x-ray per virtual radiology. Patient will be discharged home with close follow-up with his PCP. We discussed red flags which to return the continued importance of ice, Tylenol, and Motrin. I have extensively reviewed the treatment plan and discharge instructions with the patient. I have addressed all patient concerns at this time. The patient was made aware of what symptoms to monitor for that would warrant a return to the emergency department. Discussed the plan with the patient, they demonstrate verbal understanding and agreement with our assessment and plan at this time. XR Right Forearm, 2 Views FINDINGS: Bones/joints: Typical for age. No evidence of acute fracture. Soft tissues: Unremarkable. IMPRESSION: No acute findings. XR Right Hand, 1 or 2 Views FINDINGS: Bones/joints: Typical for age. No evidence of acute fracture. Soft tissues: Unremarkable. IMPRESSION: No acute findings. HPI General Date/Time Provider Initiated Documentation: 05/24/18 05:44 . HPI Narrative: This is a 22-year-old male with no significant past medical history who presents for evaluation of a fall. The patient states that he was walking i [employer] work, but unfortunately the entrance was issue device and he slipped and hit the back of his head and his right hand. He is right-hand dominant. He had no loss of consciousness and recalls the entire event. He does have a mild headache, however he states that the majority of his pain is in his right knuckles and right forearm. Pain is made worse with palpation. He came here immediately after the event, and is not taking any Tylenol or Motrin or ice. He denies any improvement of his symptoms with any focal action. He denies any radiation of his pain aside for over the third and fourth knuckle in the midshaft of the ulna. He denies any pain at the elbow or shoulder. He denies any associated numbness or tingling. He has no other complaints at this time. No previous surgeries. No IV or illicit drug use. Related Data Home Medications Medication Instructions Recorded Confirmed ondansetron 4 mg PO QID PRN #10 tab 05/14/18 05/24/18 Previous Rx's Medication Instructions Recorded ondansetron 4 mg PO QID PRN #10 tab 05/14/18 Allergies Allergy/AdvReac Type Severity Reaction Status Date / Time No Known Allergies Allergy Unverified 05/24/18 05:38 General Stated Complaint: HeadInjury CHAS: 3 Review of Systems Review of Systems All systems reviewed & are unremarkable except as noted in HPI and below [facility] Social History Smoking/Tobacco Use Status: Current-Occasional Exam Narrative Exam Narrative: 1.Const: Well-nourished, Well-developed, appearing stated age 2.Eyes: PERRL, no conjunctival injection, and symmetrical lids. 3.ENT: Atraumatic external nose and ears. Moist MM. Neck: Symmetric, trachea midline, No thyromegaly. There is no evidence of raccoon eyes, mccabe sign, CSF rhinorrhea, mastoid tenderness, cranial crepitus, hemotympanum, exophthalmos, or hyphema. 4.CVS: +S1/S2, No murmurs or gallops. Peripheral pulses 2+ and equal in all extremities. Brisk capillary refill in all extremities. 5.RESP: Unlabored respiratory effort. Clear to auscultation bilaterally. No wheezes rales or rhonchi 6.GI: Soft, Nontender/Nondistended, No hepatosplenomegaly. No guarding or rebound. 7.MSK: Normocephalic, Extremities w/o deformity. No cyanosis or clubbing, Normal movement of all extremities. No midline cervical spine tenderness. No evidence of hematoma in the scalp. No evidence of trauma on the scalp or head. Normal range of motion of the neck and C-spine. No evidence of trauma. Patient's extremities are all normal gross movements. Right upper extremity demonstrates mild tenderness on palpation of the midshaft ulna. No evidence of deformity or bruising or trauma. Patient also demonstrates mild tenderness over the third a nd fourth metacarpal phalangeal joint. Normal movement. Symmetrically palpable radial and ulnar pulses. Capillary refill ?2 seconds to all digits. Intact sensation to light touch of the radial, median and ulnar nerves demonstrated by testing in the dorsal web space of the thumb, the distal palmar aspect of the index finger, and the lateral surface of the fifth finger. 2 point discrimination intact to 5mm (up to 6mm can be normal in digits 3-5) of discrimination in the affected digit. Intact motor function of the radial, median and ulnar nerves demonstrated by strength of extension of the isolated distal joint of the index finger, hand print finisher, and spreading of the 2nd through 5th digits. Intact recurrent median nerve as demonstrated by ability to move thumb fully through opposition, abduction and flexion. No snuffbox tenderness. 8.Skin: Warm, Dry. No rashes or lesions. 9.Neuro: contact center specialist II-XII grossly intact. Sensation grossly intact, no focal neurologic deficits. 10.Psych: (AAO) x3. Appropriate mood and affect Course Vital Signs Temperature 36.6 C 05/24/18 05:29 Pulse 89 05/24/18 05:29 Respiratory Rate 16 05/24/18 05:29 Blood Pressure 139/79 05/24/18 05:29 Pulse Oximetry 98 05/24/18 05:29 Temperature 36.6 C 05/24/18 05:29 Temperature Source Temporal Artery Scan 05/24/18 05:29 Pulse 89 05/24/18 05:29 Respiratory Rate 16 05/24/18 05:29 Respiratory Effort Non-Labored 05/24/18 05:32 Blood Pressure 139/79 05/24/18 05:29 Blood Pressure Position Sitting 05/24/18 05:29 Pulse Oximetry 98 05/24/18 05:29 Oxygen Delivery Method Room Air 05/24/18 05:29 Oxygen Flow Rate 0 05/24/18 05:29 Pain Level 7 05/24/18 05:29
[2018-05-24] MEDS: Acetaminophen 500 MG TAB 1000 MG PO (06:00)
[2018-05-24] MEDS: Ibuprofen 800 MG TAB PO (06:00)
[2018-05-24 06:06] VITALS: BP 139/79; PULSE 89; RESP 16; TEMP 36.6; O2SAT 98
--- NOTE | 2018-05-24 06:10 | DI.VRAD_ITS ---
EXAM: XR Right Forearm, 2 Views EXAM DATE/TIME: 05/24/2018 5:56 AM CLINICAL HISTORY: 22 years old, male; Pain; Lower or forearm; Right; Patient HX: Pain after fall. Attn to mid-shaft ulna TECHNIQUE: XR Right forearm 2 views. COMPARISON: No relevant prior studies available. FINDINGS: Bones/joints: Typical for age. No evidence of acute fracture. Soft tissues: Unremarkable. IMPRESSION: No acute findings. Dictated and Authenticated by: Félix Maria MD. Ordering:KADE Adams MD
--- NOTE | 2018-05-24 06:10 | DI.VRAD_ITS ---
EXAM: XR Right Hand, 1 or 2 Views EXAM DATE/TIME: 05/24/2018 5:56 AM CLINICAL HISTORY: 22 years old, male; Pain; Hand; Right; Patient HX: Fall, attn to 3rd and 4th mcp joints TECHNIQUE: XR Right hand 1 or 2 views. COMPARISON: No relevant prior studies available. FINDINGS: Bones/joints: Typical for age. No evidence of acute fracture. Soft tissues: Unremarkable. IMPRESSION: No acute findings. Dictated and Authenticated by: Félix Maria MD. Ordering:KADE Adams MD
== END 2018-05-24 06:08 | disposition home or self-care (01) ==
LOC: ER 06:09
PROVIDERS: Emergency Provider Student in an Organized Health Care Education/Training Program; PCP Family Medicine
DX: S60.221A Contusion of right hand, initial encounter (principal); S50.11XA Contusion of right forearm, initial encounter; R51 Headache; W00.0XXA Fall on same level due to ice and snow, initial encounter
CPT/HCPCS: 99283; 73090; 73120; 99282

== ENCOUNTER 2018-06-04 04:58 | Emergency (ER) | payer SELFPAY ==
[2018-06-04 05:04] VITALS: BP 119/75; PULSE 91; RESP 16; TEMP 37; O2SAT 97
--- NOTE | 2018-06-04 05:30 | W.ED.GENAD ---
Discharge Plan Disposition Patient Disposition: HOME Condition: Good Discharge Details Chief Complaint: Abd Prob Clinical Impression: Nausea, vomiting and diarrhea Primary Care Provider: Trudy Bliss ED Provider: Denis Alaniz Discharge Instructions Instructions: Acute Nausea and Vomiting (ED) Additional Instructions: Continue fluids throughout the day. Advance slowly as tolerated. Follow-up with your doctor next week if not better. Return to ED for fever, persistent vomiting, worsening abdominal pain Stand Alone Forms: Work Release Referrals: Trudy Bliss [Primary Care Provider] - Medical Decision Making Patient presenting with complaint of vomiting, diarrhea, abdominal pain which has got better on its own overnight. Continues to have some abdominal discomfort and diarrhea but the vomiting has resolved. Was supposed to go into work today and did not feel like he could so he came here to be evaluated and get a doctor's note. His vital signs are good. He is not febrile. His abdomen is benign. He is tolerating fluids on his own. He does not need IV fluids or workup as he is getting better at this time on his own. Continue fluids throughout the day. Follow-up with primary care next week if not completely better. Return to ED for fever, recurrent/persistent vomiting, worsening abdominal pain. HPI General Mode of arrival: ambulatory. Date/Time Provider Initiated Documentation: 06/04/18 05:30. Limitations to Documentation: no limitations. Information obtained by: patient. HPI Narrative: Patient presents to ED with complaint of nausea, vomiting, diarrhea and abdominal pain. Symptoms started yesterday morning. He was unable to keep anything down throughout most of the day. He has not vomited since 8:00 last night. He is tolerating Pedialyte and water. Continues to have watery diarrhea. Continues to have some intermittent abdominal cramping and epigastric discomfort. He denies fevers or chills. He denies blood in his vomit or his diarrhea. Related Data Allergies Allergy/AdvReac Type Severity Reaction Status Date / Time No Known Allergies Allergy Unverified 06/04/18 05:11 General Stated Complaint: Abd Prob CHAS: 3 Review of Systems Constitutional Denies chills, Denies fever(s), Denies headache(s) and Denies weakness ENT Denies headache(s) Cardiovascular Denies chest pain, Denies syncope, Denies palpitations and Denies dyspnea Respiratory Denies cough and Denies dyspnea Gastrointestinal Reports abdominal pain, Reports cramping, Reports diarrhea, Reports nausea and Reports vomiting Genitourinary Denies hematuria, Denies dysuria and Denies flank pain Musculoskeletal Denies numbness Neurologic Denies syncope, Denies headache(s), Denies numbness and Denies weakness Endocrine Denies palpitations [facility] Social History 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[employer], 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 Smoking/Tobacco Use Status: Current-Occasional alcohol intake: current substance use type: does not use Exam Const General: cooperative and comfortable Orientation: alert and oriented x3 HENMT Head: normocephalic and atraumatic Mouth: moist mucous membranes Eyes Sclera: sclerae normal Resp Effort & Inspection: normal respiratory effort Auscultation: clear to auscultation bilaterally Cardio Rate: regular rate Rhythm: regular rhythm Heart Sounds: S1 normal and S2 normal GI Palpation: soft, no guarding and nontender Neuro General: alert, oriented x3, no focal motor deficits and CN's II-XI intact bilaterally Course Vital Signs Temperature 98.6 F 06/04/18 05:04 Pulse 91 H 06/04/18 05:04 Respiratory Rate 16 06/04/18 05:04 Blood Pressure 119/75 06/04/18 05:04 Pulse Oximetry 97 06/04/18 05:04 Temperature 98.6 F 06/04/18 05:04 Temperature Source Temporal Artery Scan 06/04/18 05:04 Pulse 91 H 06/04/18 05:04 Respiratory Rate 16 06/04/18 05:04 Respiratory Effort 06/04/18 05:04 Blood Pressure 119/75 06/04/18 05:04 Pulse Oximetry 97 06/04/18 05:04 Oxygen Delivery Method Room Air 06/04/18 05:04 Oxygen Flow Rate 0 06/04/18 05:04 Pain Level 3 06/04/18 05:04
== END 2018-06-04 06:04 | disposition home or self-care (01) ==
PROVIDERS: Emergency Provider Emergency Medicine; PCP Family Medicine
DX: R11.2 Nausea with vomiting, unspecified (principal); R19.7 Diarrhea, unspecified; R10.9 Unspecified abdominal pain
CPT/HCPCS: 99282